=== PATIENT | female | born 1985 | race Caucasian/White ===

== ENCOUNTER 2019-11-11 08:07 | Emergency (ER) | payer OTHER, SELFPAY ==
--- NOTE | ~2019-11-11 | XR_ITS ---
EXAMINATION: XR hand RT min 3V DATE: 11/11/2019 09:37 INDICATION: Right hand swelling. TECHNIQUE: 3 views of right hand were obtained. COMPARISON: None. FINDINGS: Bone alignment is normal. No fracture. There is mild osteoarthritis of fifth distal interph alangeal joint. IMPRESSION: 1. Mild osteoarthritis of fifth distal interphalangeal joint. Reviewed, dictated and finalized at location A. [facility]
[2019-11-11 08:10] VITALS: BP 132/80; PULSE 81; RESP 16; TEMP 37.4; O2SAT 100
--- NOTE | 2019-11-11 09:00 | ED.GENADULT ---
HPI - General Adult General Chief complaint: Unspecified Stated complaint: finger swelling/rash Time Seen by Provider: 11/11/19 08:11 Source: patient Mode of arrival: ambulatory Limitations: no limitations History of Present Illness HPI narrative: Patient is here primarily for an evaluation of swelling of fingers 2 3 and 5 on her right hand, and area of redness on the third finger. She denies any trauma, and only mild discomfort when she bends them. She works as a inside barrel lathe operator, she is not had a recent manicure. There is no history of arthritis in herself or her family. The swelling started several days ago, she is taken 1 dose of ibuprofen, and 1 dose of Benadryl for the redness. She states that she has had a low-grade fever in the past 24 hours, 99.3 Onset (ago): day(s) Location: right and upper extremity Radiation: non-radiation and distal Severity: mild Relieving factors: none Exacerbating factors: movement Associated symptoms: denies other symptoms Treatments prior to arrival: NSAID Related Data Home Medications Medication Instructions Recorded Confirmed diazepam 11/11/19 lisinopril 11/11/19 Allergies Allergy/AdvReac Type Severity Reaction Status Date / Time No Known Allergies Allergy Verified 11/11/19 08:53 Review of Systems Review of Systems: All systems reviewed & are unremarkable except as noted in HPI and below PENDING SALE TO [facility] Social History Social History (Updated 11/11/19 @ 10:09 by Haley Frazier PA-C) Smoking status: Light tobacco smoker Alcohol intake: current Substance use: never Living arrangements: with family Occupation/Education: occupation Exam Const: General: no acute distress and alert Orientation/consciousness: patient oriented x3 HENMT: Head: normal to inspection Eyes: Pupils: Equal, round and reactive pupils present Resp: Effort & Inspection: normal respiratory effort Auscultation: clear to auscultation bilaterally Cardio: Rate: regular rate Rhythm: regular rhythm Skin: General skin exam: normal color Rashes: rashes noted (flat, smooth erythema at DIP right 3rd finger, cigarette area) Trauma: no lacerations or abrasions Wounds: no wounds Nails: normal Neuro: General: moves all extremities Extrem: General: normal to inspection and edema (mild edema and to fingers 2&3 on right hand, medial angulation of both 5th ) Psych: Mental Status: mental status grossly normal Course Course Emergency Course: The fingers in question are painful to touch. There is medial length angulation of both fifth fingers, but full range of motion. Patient states that she also has occasional pain in her right knee, and other arthritic-like complaints. Recommend treating with NSAIDs, follow-up with her primary care. Patient was anxious because her xniqqq-sa-akh recently from an MRSA infection and she had been visiting him in the hospital. Vital Signs Vital signs: Vital Signs Temperature 37.4 C 11/11/19 08:10 Pulse Rate 81 11/11/19 08:10 Respiratory Rate 16 11/11/19 08:10 Blood Pressure 132/80 11/11/19 08:10 Pulse Oximetry 100 11/11/19 08:10 Temperature 37.4 C 11/11/19 08:10 Pulse Rate 81 11/11/19 08:10 Respiratory Rate 16 11/11/19 08:10 Blood Pressure 132/80 11/11/19 08:10 Pulse Oximetry 100 11/11/19 08:10 Medical Decision Making Vital Signs Vital Signs: Vital Signs Temperature 37.4 C 11/11/19 08:10 Pulse Rate 81 11/11/19 08:10 Respiratory Rate 16 11/11/19 08:10 Blood Pressure 132/80 11/11/19 08:10 Pulse Oximetry 100 11/11/19 08:10 Temperature 37.4 C 11/11/19 08:10 Pulse Rate 81 11/11/19 08:10 Respiratory Rate 16 11/11/19 08:10 Blood Pressure 132/80 11/11/19 08:10 Pulse Oximetry 100 11/11/19 08:10 Discharge Plan Discharge Clinical Impression: Osteoarthritis Qualifiers: Osteoarthritis location: hand Osteoarthritis type: primary Laterality: bilateral Qualified Code(s): M19.041
== END 2019-11-11 10:25 | disposition home or self-care (01) ==
PROVIDERS: Emergency Provider Emergency Medicine; PCP Family Medicine
DX: M19.041 Primary osteoarthritis, right hand (principal); M19.042 Primary osteoarthritis, left hand; F17.200 Nicotine dependence, unspecified, uncomplicated
CPT/HCPCS: 73130; 99283

== ENCOUNTER → 2021-06-05 08:00 | Outpatient (CLI) | payer OTHER, SELFPAY ==
[2021-06-05 20:24] LABS: SARS-CoV-2 RNA PCR Negative
== END ==
PROVIDERS: PCP Family Medicine; Visit Provider Family Medicine
DX: J01.00 Acute maxillary sinusitis, unspecified (principal); Z20.822 Contact with and (suspected) exposure to COVID-19
CPT/HCPCS: C9803; U0003; U0005

== ENCOUNTER 2021-07-31 13:35 | Emergency (ER) | payer OTHER, SELFPAY ==
--- NOTE | ~2021-07-31 | XR_ITS ---
EXAMINATION: XR chest 2V DATE: 07/31/2021 14:32 INDICATION: Cough TECHNIQUE: PA and lateral views of the chest are obtained. COMPARISON: 06/05/2007 FINDINGS: The lungs are free of acute opacities. There is no pleural effusion or pneumothorax. The ca rdiomediastinal silhouette is normal. The visualized bones and soft tissues are unremarkable. IMPRESSION: 1. No acute cardiopulmonary abnormality. Reviewed, dictated and finalized at location B.
[2021-07-31 13:45] VITALS: BP 146/75; PULSE 97; RESP 16; TEMP 37; O2SAT 100
--- NOTE | 2021-07-31 14:24 | ED.URI ---
HPI - URI/Sore Throat General Chief Complaint: Upper Respiratory Infection Stated Complaint: sinus/chest congestion Time Seen by Provider: 07/31/21 14:17 Source: patient and RN notes reviewed Mode of arrival: ambulatory Limitations: no limitations History of Present Illness HPI Narrative: Patient presents today with a 4-day history of sore throat, nasal congestion, productive cough. This morning patient woke up with right-sided shoulder blade pain with shortness of breath with exertion and wheezing. Denies fever. No history of asthma or COPD. She has been taking [place] cold medicine at night with mild relief. She has not been vaccinated against COVID-19. Denies any sick contacts. MD elicited complaint: cough and nasal congestion Related Data Home Medications Medication Instructions Recorded Confirmed qcwpqztfnswh-Cq-xeib-minerals tablet PO . daily tablet 03/12/21 03/22/21 pantoprazole 40 mg tablet,delayed 40 mg PO QAM 03/12/21 03/22/21 release cyanocobalamin (vitamin B-12) 1,000 mcg PO DAILY 03/13/21 1,000 mcg tablet Allergies Allergy/AdvReac Type Severity Reaction Status Date / Time No Known Allergies Allergy Verified 11/11/19 08:53 Review of Systems Review of Systems: CONSTITUTIONAL: Denies body aches, fever, chills, or sweats. EYES: Denies visual changes, redness, or discharge. ENT: Denies rhinorrhea, or otalgia.+ Sore throat, congestion CARDIOVASCULAR: Denies chest pain, palpitations, or edema. RESPIRATORY: + Cough, shortness of breath, wheezing GASTROINTESTINAL: Denies abdominal pain, nausea, vomiting, or diarrhea. GENITOURINARY: Denies dysuria or hematuria. SKIN: Denies rash, itching, or wounds. MUSCULOSKELETAL: Denies joint pain, or myalgia.+ Right upper back pain NEUROLOGIC: Denies headache, numbness, tingling, or weakness. PSYCH: Denies depression or anxiety. [facility], [facility] Past Medical History Medical History Acute bronchitis Acute non-recurrent maxillary sinusitis COVID test 06/05/21 Allergies Anxiety Arthritis BMI 31.0-31.9,adult Chronic anxiety Chronic depression Essential (primary) hypertension Gastritis Gastro-esophageal reflux disease without esophagitis GERD (gastroesophageal reflux disease) Hypertension Mixed hyperlipidemia (03/12/21) total cholesterol 205, HDL 49, triglycerides 156, LDL 129 on 03/12/2021 Positive BUCKY (antinuclear antibody) positive BUCKY 1:80 speckled pattern with SS be positive at 4.4 with possible Sjogren syndrome or SLE without symptoms, CRP 0.21, sedimentation 7, rheumatoid factor less than 15, CCP 7 Seasonal allergic rhinitis Tobacco use disorder, continuous Vitamin B12 deficiency anemia level low at 279 on 03/12/2021 Family History Family History Father Alcohol abuse Hypertension Mother Hypertension Anxiety Sibling Diabetes mellitus Anxiety Depression Grandparent Diabetes mellitus Hypertension Anxiety Depression Cerebrovascular accident Grandparent Diabetes mellitus Hypertension Social History Social History Smoking packs per day: 0.5 Smoking cigarettes per day: 10.0 Smoking status: Current every day smoker ( 1/2 of a pack daily) Tobacco type: cigarettes Alcohol intake: current Substance use: never Comments At time of signature, I have reviewed and agree with nursing past medical, surgical, social and family history unless otherwise noted. Please see nursing chart for further information. There is no relevant family history pertinent to the presenting complaint Exam Narrative: GENERAL: Well-appearing, well-nourished, and in no acute distress. HEAD: Normocephalic, atraumatic. EYES: EOMI. No redness or drainage. Conjunctivae normal. ENT: Mucous membranes pink and moist. Nares congested. No rhinorrhea. TMs normal bilaterally. T
== END 2021-07-31 15:18 | disposition home or self-care (01) ==
PROVIDERS: Emergency Provider Nurse Practitioner; PCP Family Medicine
DX: J06.9 Acute upper respiratory infection, unspecified (principal); Z20.822 Contact with and (suspected) exposure to COVID-19; F17.210 Nicotine dependence, cigarettes, uncomplicated; F41.9 Anxiety disorder, unspecified; M19.90 Unspecified osteoarthritis, unspecified site; F32.A Depression, unspecified; I10 Essential (primary) hypertension; K21.9 Gastro-esophageal reflux disease without esophagitis; E78.2 Mixed hyperlipidemia
CPT/HCPCS: 71046; 87426; 99213; C9803; G0463

== ENCOUNTER → 2021-11-12 10:28 | Outpatient (CLI) | payer OTHER, SELFPAY ==
--- NOTE | ~2021-11-12 | XR_ITS ---
XR knee RT min 4V DATE: 11/12/2021 10:48 INDICATION: Right knee pain for one week. No known injury. TECHNIQUE: [place], lateral, PA and standing AP views COMPARISON: None FINDINGS: No fracture or dislocation or joint effusion. No periosteal reaction or bone destruction. N o radiopaque intra-articular loose body or chondrocalcinosis. Joint spaces are well preserved. IMPRESSION: Negative Reviewed, dictated and finalized at location B. [employer]IST[employer] I CEMENTING IMPRESSION: Negative
== END ==
PROVIDERS: PCP Family Medicine; Visit Provider Nurse Practitioner Family
DX: M25.561 Pain in right knee (principal)
CPT/HCPCS: 73564

== ENCOUNTER → 2022-02-28 02:10 | Outpatient (CLI) | payer OTHER, SELFPAY ==
[2022-02-28 16:40] LABS: SARS-CoV-2 RNA PCR Negative
== END ==
PROVIDERS: PCP Family Medicine; Visit Provider Family Medicine
DX: J02.9 Acute pharyngitis, unspecified (principal); Z20.822 Contact with and (suspected) exposure to COVID-19
CPT/HCPCS: C9803; U0003; U0005

== ENCOUNTER 2024-02-25 13:11 | Outpatient (CLI) | payer OTHER, SELFPAY ==
--- NOTE | ~2024-02-25 | MM_ITS ---
EXAMINATION: MM screening [facility] BI w haja HISTORY: Screening TECHNIQUE: Craniocaudal and mediolateral oblique 3-D tomosynthesis images were obtained and synthetic 2-D images were generated. CAD analysis was submitted and interpreted. COMPARISON: No prior mammogram is available for comparison at this institution. BREAST PARENCHYMAL COMPOSITION: Not dense: There are scattered areas of fibroglandular density. FINDINGS: There is no evidence of suspicious mass, calcification, or architectural distortion to sugg est malignancy in either breast. There has been no suspicious interval change. IMPRESSION: 1. No mammographic evidence of malignancy. 2. Recommend routine screening mammography in one year. BI-RADS Category 1: Negative Reviewed, dictated and finalized at location B.
== END 2024-02-25 13:12 ==
LOC: MICIMG 13:11
PROVIDERS: PCP Obstetrics & Gynecology; Visit Provider Obstetrics & Gynecology
DX: Z12.31 Encounter for screening mammogram for malignant neoplasm of breast (principal)
CPT/HCPCS: 77063; 77067

== ENCOUNTER 2025-06-21 20:48 | Observation (INO) | payer OTHER, SELFPAY ==
--- NOTE | ~2025-06-21 | CT_ITS ---
EXAMINATION: CT abdomen pelvis w con DATE: 06/22/2025 00:00 INDICATION: Generalized abdominal pain. TECHNIQUE: Computed tomography (CT) of the abdomen and pelvis was performed with 100 mL Omnipaque 350 intravenous contrast. Automated exposure control and iterative reconstruction technique were employed. The dose-length product was 932.78 mGy-cm. COMPARISON: None. FINDINGS: The visualized portions of lung bases are clear without pneumonia or pleural effusion. The heart size is normal. No pericardial effusion. The liver and gallbladder are normal. There are changes of cholecystectomy. The pancreas, adrenal glands, and right kidney are normal. There is a 14 mm cyst in left kidney. The appendix is normal. There are no dilated loops of bowel. There is wall thickening of many loops of small bowel, consistent with enteritis. There is a small volume of ascites. There is a supraumbilical ventral hernia containing fat. There are no pathologically enlarged lymph nodes. There is mild thoracic spondylosis. IMPRESSION: 1. Enteritis. 2. Supraumbilical ventral hernia containing fat. 3. Small volume of ascites. Reviewed, dictated and finalized at location E.
[2025-06-21 21:03] VITALS: BP 106/65; PULSE 102; RESP 18; TEMP 36.7; O2SAT 98
[2025-06-21 21:37] VITALS: BP 100/63; PULSE 78; RESP 16; O2SAT 94
[2025-06-21 22:03] LABS: BEDSIDEPREGUCG Negative (Negative)
[2025-06-21 22:05] LABS: Hematocrit 48.8 % (37.0-47.0); Hemoglobin 16.5 g/dL (12.0-15.0); Immature Granulocyte Percent A 0.6 % (0-0.5); Lymphocytes Absolute Auto 3.35 K/mm3 (0.9-3.2); Mean Corpuscular HGB Conc 33.8 g/dl (32-36); Mean Corpuscular Hemoglobin 33.2 pg (26-34); Mean Corpuscular Volume 98.2 fl (80-100); Nucleated Red Blood Cells Absolute Auto 0.000 K/mm3 (0.0-0.012); Nucleated Red Blood Cells Perc 0.0 % (0.0-0.2); Platelet Count Result 387 k/mm3 (150-375); Red Blood Count 4.97 M/mm3 (4.2-5.4); White Blood Count 19.2 K/mm3 (4.5-10.0)
[2025-06-21 22:16] LABS: Alanine Aminotransferase 25 U/L (6-35); Albumin Level 4.8 g/dL (3.5-5.1); Alkaline Phosphatase 74 U/L (38-126); Anion Gap 15 mmol/L (4-12); Aspartate Amino Transferase 27 U/L (14-36); Bilirubin,Total 0.8 mg/dL (0.2-1.3); Blood Urea Nitrogen 19 mg/dL (7-17); Calcium 9.7 mg/dL (8.4-10.2); Carbon Dioxide 19 mmol/L (22-30); Chloride 103 mmol/L (98-107); Estimated Glomerular Filt Rate 35; Glucose 114 mg/dL (65-110); Lipase 86 U/L (23-300); Potassium 4.6 mmol/L (3.4-5.0); Sodium 137 mmol/L (137-145); Total Protein 8.8 g/dL (6.3-8.2)
[2025-06-21 22:20] LABS: Add Urine Microscopic? YES; Appearance Urine Turbid (Clear); Glucose Urine UA Negative (Negative); Leukocyte Esterase Ur Negative LEU/UL (Negative); Need Manual Microscopic Reviewed; Nitrate Urine Negative (Negative); Non Pathogenic Casts >20; Specific Grav Ur 1.027 (1.001-1.035)
--- NOTE | 2025-06-21 22:45 | ECG_ITS ---
Test Date: 2025-06-21 23:38:10 Measurements Intervals [place] Rate: 65 P: 20 MT: 112 QRS: 28 QRSD: 80 T: 37 QT: 417 QTc: 437 Interpretive Statements SINUS RHYTHM WITH SHORT MT INTERVAL No previous ECG available for comparison Electronically Signed On 06-22-2025 06:37:56 CDT by Felicia Jeffery M.D.
--- NOTE | 2025-06-21 22:48 | ED_ITS ---
HPI - Abdominal Pain General Chief Complaint: Abdominal Pain <Kathie Norwood APRN - Last Filed: 06/22/25 02:36> Stated Complaint: abd issues <Kathie Norwood APRN - Last Filed: 06/22/25 02:36> Time Seen by Provider: 06/21/25 21:31 <Kathie Norwood APRN - Last Filed: 06/22/25 02:36> History of Present Illness HPI narrative: Patient is a 39-year-old female who presents to the ER with abdominal cramping that started on Thursday, 2 days ago. She reports most of her pain is on the left side of her abdomen and feels like labor contractions. Patient reports she has had nausea and vomiting that started this morning. She reports she has been unable to eat anything today. Patient denies any recent fevers, back pain, chest pain or shortness of breath. She endorses a history of high blood pressure, cholecystectomy, and GERD. <Kathie Norwood APRN - Last Filed: 06/22/25 02:36> Related Data Home Medications: Home Medications ?Medication ?Instructions ?Recorded ?Confirmed ?Last Taken ?Type cyanocobalamin (vitamin B-12) 1,000 mcg PO DAILY 03/1306/22/25 06/19/25 History 1,000 mcg tablet ibuprofen 400 mg PO .COMPLEX PRN pain 11/12/21 06/22/25 Unknown History loratadine 10 mg tablet (Claritin) 10 mg PO DAILY PRN allergy symptoms 03/14/24 06/22/25 Unknown History <Kathie Norwood APRN - Last Filed: 06/22/25 02:36> Allergies/Adverse Reactions: Allergies Allergy/AdvReac Type Severity Reaction Status Date / Time buspirone (From BuSpar) Allergy Intermediate Hives Verified 10/31/24 10:27 01/06/2022 <Kathie Norwood APRN - Last Filed: 06/22/25 02:36> Review of Systems 2 Review of Systems: All systems reviewed & are unremarkable except as noted in HPI and below <Kathie Norwood APRN - Last Filed: 06/22/25 02:36> [facility] Past Medical History Medical History: Medical History Gastritis Encounter for wellness examination in adult Screening mammogram, encounter for normal mammogram 02/25/2024. Spider bite (01/31/23) right flank BMI 34.0-34.9,adult COVID-19 (~04/08/22) unvaccinated Pharyngitis (~01/2022) COVID neg 02/28/22 Obesity (BMI 30.0-34.9) Urticaria BMI 33.0-33.9,adult Muscle spasm Right knee pain Right anterior knee pain Esophageal fistula repaired at 3 months Encounter for insertion of mirena IUD 09/15/2007 History of pyloric stenosis Abdominal pain Back pain Chronic eustachian tube dysfunction BMI 32.0-32.9,adult Acute non-recurrent maxillary sinusitis COVID test 06/05/21 Mixed hyperlipidemia (03/12/21) total cholesterol 205, HDL 49, triglycerides 156, LDL 129 on 03/12/2021 . Cholesterol 200, triglycerides 157, HDL 47, LDL 126 on 01/29/2022. Total cholesterol 211, triglycerides 112, HDL 48, LDL 140 with ratio of 4.4 on 01/31/2023. total cholesterol 211, HDL 48, triglycerides 112, LDL 140 with ratio 4.4 on 01/31/2023. Cholesterol 221, triglycerides 205, HDL 41, LDL 146 with ratio 5.4 on 03/04/2024. cholesterol 241, triglycerides 177, HDL 52, LDL 158 with ratio 4.6 on 10/07/2024. cholesterol 233, triglycerides 124, HDL 49, LDL 159 with ratio of 4.8 on 05/18/2025. Positive BUCKY (antinuclear antibody) positive BUCKY 1:80 speckled pattern with SS be positive at 4.4 with possible Sjogren syndrome or SLE without symptoms, CRP 0.21, sedimentation 7, rheumatoid factor less than 15, CCP 7 Vitamin B12 deficiency anemia level low at 279 on 03/12/2021 . Level normal at 506 on 01/29/2022. Level low at 293 with goal greater than 400 on 01/31/2023 with folic acid 8.3 and hemoglobin 13.3. Level low at 293 with goal greater than 400 with folic acid 8.3 and hemoglobin 13.3 on 01/31/2023. level low at 240 with hemoglobin 13.6 on 03/04/2024. Level low at 311 on 10/07/2024. Level low at 238 with goal greater than 400 with hemoglobin 13.3 on 05/18/2025. Tobacco use disorder, continuous 1/2 pack per day BMI 31.0-31.9,adult Chronic depression Chronic anxiety Seasonal allergic rhinitis Gastro-esophageal reflux disease without esophagitis Essential (primary) hypertension Hypertension GERD (gastroesophageal reflux disease) Arthritis Anxiety <Kathie Norwood APRN - Last Filed: 06/22/25 02:36> Surgical History Surgical History: Surgical History H/O tubal ligation 2008 History of colposcopy with cervical biopsy 01/05/09 [facility] CIN2/ ECC benign H/O LEEP 01/18/09 [facility] GISELE 1 H/O dilation and curettage 11/12/11 Menorrhagia- moderate dysplasia [facility] GISELE 2-3/ adenomyosis History of robot-assisted laparoscopic hysterectomy 01/13/12 [facility]--dysmenorrhea, dysplasia, [facility] GISELE 2-3, adenomyosis Hx of cholecystectomy <Kathie Norwood APRN - Last Filed: 06/22/25 02:36> Family History Family History: Family History Father Alcohol abuse Hypertension Mother Hypertension Anxiety Sibling Diabetes mellitus Anxiety Depression Grandparent Diabetes mellitus Hypertension Anxiety Depression Cerebrovascular accident Grandparent Diabetes mellitus Hypertension <Kathie Norwood APRN - Last Filed: 06/22/25 02:36> Social History Social History: Social History Smoking packs per day: 0.5 Smoking cigarettes per day: 10.0 Years smoked: 23 Smoking pack-years: 11.50 Smoking status: Current every day smoker Tobacco type: cigarettes Second hand tobacco smoke exposure: Yes Alcohol intake: current Drinks per week: 1 Alcohol use details: occ 1 every 3 months Substance use: never Substance use type: does not use Do You Feel Safe in your Home?: Yes Lack of Transportation: No Lack of Food: Never True Current Housing: I Have Housing Concerned About Future Housing: No Difficulty Paying Gas/Electric Bills: No Difficulty Paying for Meds: No Currently Unemployed: No Education: High School Diploma/GED Difficulty w/ Childcare or Family Care: No Living arrangements: with family Additional living arrangements comments: spouse Occupation/Education: occupation 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 HEAD: Normocephalic, atraumatic. NECK: Supple. No adenopathy, no masses. RESPIRATORY: Airway patent, respirations nonlabored. Clear to auscultation bilaterally, no rales, rhonchi, wheezing. CARDIOVASCULAR:Tachycardia without murmurs, rubs, or gallops. Peripheral pulses 2+ and equal bilaterally. Negative CVA tenderness ABDOMINAL: Soft, tender L upper and lower quadrant, nondistended, no hepatosplenomegaly. Normoactive BS. MUSCULOSKELETAL: Moves all extremities. Strength/ROM intact without gross deformities. SKIN: Warm, dry, normal color. No rashes. NEURO: A&O X3. Speech clear. Cranial nerves II-XII intact. No ataxic movements. PSYCHIATRIC: Appropriate mood and affect. Normal interaction. <Kathie Norwood APRN - Last Filed: 06/22/25 02:36> Course CLOUD ENGAGEMENT PARTNER/PA Physician Supervision This visit was performed by both a physician and an APC. I performed all aspects of the MDM as documented. <Ajay Kahn MD - Last Filed: 06/22/25 06:27> Vital Signs Vital signs: Vital Signs Temperature 36.7 C 06/21/25 21:03 Pulse Rate 102 H 06/21/25 21:03 Respiratory Rate 18 06/21/25 21:03 Blood Pressure 106/65 06/21/25 21:03 Pulse Oximetry 98 06/21/25 21:03 Oxygen Delivery Room Air 06/21/25 21:03 Temperature 36.6 C 06/22/25 04:52 Pulse Rate 51 L 06/22/25 04:52 Respiratory Rate 16 06/22/25 04:52 Blood Pressure 112/66 06/22/25 04:52 Pulse Oximetry 98 06/22/25 04:52 Oxygen Delivery Room Air 06/21/25 21:03 <Kathie Norwood APRN - Last Filed: 06/22/25 02:36> Vital Signs Temperature 36.7 C 06/21/25 21:03 Pulse Rate 102 H 06/21/25 21:03 Respiratory Rate 18 06/21/25 21:03 Blood Pressure 106/65 06/21/25 21:03 Pulse Oximetry 98 06/21/25 21:03 Oxygen Delivery Room Air 06/21/25 21:03 Temperature 36.6 C 06/22/25 04:52 Pulse Rate 51 L 06/22/25 04:52 Respiratory Rate 16 06/22/25 04:52 Blood Pressure 112/66 06/22/25 04:52 Pulse Oximetry 98 06/22/25 04:52 Oxygen Delivery Room Air 06/21/25 21:03 <Ajay Kahn MD - Last Filed: 06/22/25 06:27> MDM - Abdominal Pain MDM Narrative Medical decision making narrative: Patient is a 39-year-old female who presents to the ER with abdominal cramping that started on Thursday, 2 days ago. She reports most of her pain is on the left side of her abdomen and feels like labor contractions. Patient reports she has had nausea and vomiting that started this morning. She reports she has been unable to eat anything today. Patient denies any recent fevers, back pain, chest pain or shortness of breath. She endorses a history of cholecystomy, high blood pressure and GERD. Labs Ordered: CBC, CMP, lactic acid, UA, lipase, CRP Imaging Ordered: CT abdomen pelvis with contrast Medications Ordered: 3 L normal saline IV bolus, morphine 4 mg IV, ceftriaxone 1 g IV Results: Patient's CT abdomen pelvis scan indicates thickened small bowel loops suggestive of enteritis. Small amount of free fluid in the pelvis. Diagnosis: Acute kidney injury, urinary tract infection Results of imaging and lab work shared with patient and their family. It was advised patient be admitted to the hospital for further evaluation and treatment. Patient and their family verbalized understanding and are in agreement with plan. 0230- Spoke with Dr. Muro, who is in agreement with plan for admission. Pt will be admitted to the med/surg floor. <Kathie Norwood APRN - Last Filed: 06/22/25 02:36> Differential Diagnosis Differential diagnosis: Likely abdominal pain, calculus of kidney, gastroenteritis and small bowel obstruction <Kathie Norwood APRN - Last Filed: 06/22/25 02:36> Lab Data Attestation: I reviewed the patient's lab results. <Kathie Norwood APRN - Last Filed: 06/22/25 02:36> Result diagrams: 06/21/25 23:07 06/21/25 23:07 <Kathie Norwood APRN - Last Filed: 06/22/25 02:36> Labs: Lab Results 06/21/25 06/21/25 06/21/25 Range/Units 21:58 22:00 23:07 WBC 19.2 H 19.5 H (4.5-10.0) K/mm3 RBC 4.97 4.95 (4.2-5.4) M/mm3 Hgb 16.5 H 16.4 H (12.0-15.0) g/dL Hct 48.8 H 48.4 H (37.0-47.0) % MCV 98.2 97.8 (80-100) fl MCH 33.2 33.1 (26-34) pg MCHC 33.8 33.9 (32-36) g/dl RDW 12.9 12.9 (11.5-14.5) % Plt Count 387 H 370 (150-375) k/mm3 MPV 10.5 H 10.5 H (7.4-10.4) fl Immature Gran % (Auto) 0.6 H 0.6 H (0-0.5) % Neut % (Auto) 76.6 H 79.8 H (45.5-73.1) % Lymph % (Auto) 17.4 L 15.2 L (18.3-44.2) % [place] % (Auto) 4.6 3.8 (2.6-8.5) % Eos % (Auto) 0.5 0.3 (0-4.4) % Baso % (Auto) 0.3 0.3 (0.2-1.2) % Lymph # (Auto) 3.35 H 2.96 (0.9-3.2) K/mm3 [place] # (Auto) 0.9 H 0.8 H (0.1-0.6) K/mm3 Eos # (Auto) 0.1 0.1 (0-0.3) K/mm3 Baso # (Auto) 0.1 0.1 (0.0-0.1) K/mm3 Abs Immat Gran (auto) 0.11 H 0.12 H (0.00-0.031) K/mm3 Absolute Neuts (auto) 14.7 H 15.6 H (1.3-6.7) K/mm3 Absolute Nucleated RBC 0.000 0.000 (0.0-0.012) K/mm3 Nucleated RBC % 0.0 0.0 (0.0-0.2) % PT 13.8 (11.1-14.7) Seconds INR 1.0 APTT 25.2 (22.3-36.8) Seconds Sodium 137 137 (137-145) mmol/L Potassium 4.6 4.8 (3.4-5.0) mmol/L Chloride 103 104 (98-107) mmol/L Carbon Dioxide 19 L 18 L (22-30) mmol/L Anion Gap 15 H 15 H (4-12) mmol/L BUN 19 H 20 H (7-17) mg/dL Creatinine 1.61 H 1.59 H (0.7-1.0) mg/dL Estim Creat Clear Calc Not Reportable Not Reportable Estimated GFR 35 L 36 L (59 - ) Glucose 114 H 107 (65-110) mg/dL Lactic Acid (0.7-2.0) mmol/L Calcium 9.7 9.5 (8.4-10.2) mg/dL Total Bilirubin 0.8 0.8 (0.2-1.3) mg/dL AST 27 29 (14-36) U/L ALT 25 25 (6-35) U/L Alkaline Phosphatase 74 76 (38-126) U/L C-Reactive Protein 3.5 H (<1.0) mg/dL Total Protein 8.8 H 8.6 H (6.3-8.2) g/dL Albumin 4.8 4.7 (3.5-5.1) g/dL Lipase 86 (23-300) U/L Urine Color Dark yellow (Yellow) Urine Appearance Turbid H (Clear) Urine pH 5.0 (5.0-9.0) Ur Specific [place] 1.027 (1.001-1.035) Urine Protein 1+ H (Negative) mg/dL Urine Glucose (UA) Negative (Negative) mg/dL Urine Ketones Trace H (Negative) mg/dL Ur Blood (Man) Negative (Negative) Urine Nitrate Negative (Negative) Urine Bilirubin 2+ H (Negative) Urine Urobilinogen 1.0 (<2.0) mg/dL Add Ur Microanalysis Reviewed Leukocyte Esterase Rfl Negative (Negative) FRENCH/UL Urine RBC 11-20 H (0-2) /hpf Urine WBC 11-20 H (0-3) /hpf Ur Squamous Epith Cells Many H (Few) /hpf Urine Bacteria 4+ H /hpf Urine Casts >20 Urine Mucus Present /lpf POC Urine HCG, Qual Negative (Negative) // Range/Units 23:08 WBC (4.5-10.0) K/mm3 RBC (4.2-5.4) M/mm3 Hgb (12.0-15.0) g/dL Hct (37.0-47.0) % MCV (80-100) fl MCH (26-34) pg MCHC (32-36) g/dl RDW (11.5-14.5) % Plt Count (150-375) k/mm3 MPV (7.4-10.4) fl Immature Gran % (Auto) (0-0.5) % Neut % (Auto) (45.5-73.1) % Lymph % (Auto) (18.3-44.2) % [place] % (Auto) (2.6-8.5) % Eos % (Auto) (0-4.4) % Baso % (Auto) (0.2-1.2) % Lymph # (Auto) (0.9-3.2) K/mm3 [place] # (Auto) (0.1-0.6) K/mm3 Eos # (Auto) (0-0.3) K/mm3 Baso # (Auto) (0.0-0.1) K/mm3 Abs Immat Gran (auto) (0.00-0.031) K/mm3 Absolute Neuts (auto) (1.3-6.7) K/mm3 Absolute Nucleated RBC (0.0-0.012) K/mm3 Nucleated RBC % (0.0-0.2) % PT (11.1-14.7) Seconds INR APTT (22.3-36.8) Seconds Sodium (137-145) mmol/L Potassium (3.4-5.0) mmol/L Chloride (98-107) mmol/L Carbon Dioxide (22-30) mmol/L Anion Gap (4-12) mmol/L BUN (7-17) mg/dL Creatinine (0.7-1.0) mg/dL Estim Creat Clear Calc Estimated GFR (59 - ) Glucose (65-110) mg/dL Lactic Acid 1.5 (0.7-2.0) mmol/L Calcium (8.4-10.2) mg/dL Total Bilirubin (0.2-1.3) mg/dL AST (14-36) U/L ALT (6-35) U/L Alkaline Phosphatase (38-126) U/L C-Reactive Protein (<1.0) mg/dL Total Protein (6.3-8.2) g/dL Albumin (3.5-5.1) g/dL Lipase (23-300) U/L Urine Color (Yellow) Urine Appearance (Clear) Urine pH (5.0-9.0) Ur Specific [place] (1.001-1.035) Urine Protein (Negative) mg/dL Urine Glucose (UA) (Negative) mg/dL Urine Ketones (Negative) mg/dL Ur Blood (Man) (Negative) Urine Nitrate (Negative) Urine Bilirubin (Negative) Urine Urobilinogen (<2.0) mg/dL Add Ur Microanalysis Leukocyte Esterase Rfl (Negative) FRENCH/UL Urine RBC (0-2) /hpf Urine WBC (0-3) /hpf Ur Squamous Epith Cells (Few) /hpf Urine Bacteria /hpf Urine Casts Urine Mucus /lpf POC Urine HCG, Qual (Negative) <Kathie Norwood, RAIL DOWELING MACHINE OPERATOR - Last Filed: 06/22/25 02:36> Lab Results 06/21/25 06/21/25 06/21/25 Range/Units 21:58 22:00 23:07 WBC 19.2 H 19.5 H (4.5-10.0) K/mm3 RBC 4.97 4.95 (4.2-5.4) M/mm3 Hgb 16.5 H 16.4 H (12.0-15.0) g/dL Hct 48.8 H 48.4 H (37.0-47.0) % MCV 98.2 97.8 (80-100) fl MCH 33.2 33.1 (26-34) pg MCHC 33.8 33.9 (32-36) g/dl RDW 12.9 12.9 (11.5-14.5) % Plt Count 387 H 370 (150-375) k/mm3 MPV 10.5 H 10.5 H (7.4-10.4) fl Immature Gran % (Auto) 0.6 H 0.6 H (0-0.5) % Neut % (Auto) 76.6 H 79.8 H (45.5-73.1) % Lymph % (Auto) 17.4 L 15.2 L (18.3-44.2) % [place] % (Auto) 4.6 3.8 (2.6-8.5) % Eos % (Auto) 0.5 0.3 (0-4.4) % Baso % (Auto) 0.3 0.3 (0.2-1.2) % Lymph # (Auto) 3.35 H 2.96 (0.9-3.2) K/mm3 [place] # (Auto) 0.9 H 0.8 H (0.1-0.6) K/mm3 Eos # (Auto) 0.1 0.1 (0-0.3) K/mm3 Baso # (Auto) 0.1 0.1 (0.0-0.1) K/mm3 Abs Immat Gran (auto) 0.11 H 0.12 H (0.00-0.031) K/mm3 Absolute Neuts (auto) 14.7 H 15.6 H (1.3-6.7) K/mm3 Absolute Nucleated RBC 0.000 0.000 (0.0-0.012) K/mm3 Nucleated RBC % 0.0 0.0 (0.0-0.2) % PT 13.8 (11.1-14.7) Seconds INR 1.0 APTT 25.2 (22.3-36.8) Seconds Sodium 137 137 (137-145) mmol/L Potassium 4.6 4.8 (3.4-5.0) mmol/L Chloride 103 104 (98-107) mmol/L Carbon Dioxide 19 L 18 L (22-30) mmol/L Anion Gap 15 H 15 H (4-12) mmol/L BUN 19 H 20 H (7-17) mg/dL Creatinine 1.61 H 1.59 H (0.7-1.0) mg/dL Estim Creat Clear Calc Not Reportable Not Reportable Estimated GFR 35 L 36 L (59 - ) Glucose 114 H 107 (65-110) mg/dL Lactic Acid (0.7-2.0) mmol/L Calcium 9.7 9.5 (8.4-10.2) mg/dL Total Bilirubin 0.8 0.8 (0.2-1.3) mg/dL AST 27 29 (14-36) U/L ALT 25 25 (6-35) U/L Alkaline Phosphatase 74 76 (38-126) U/L C-Reactive Protein 3.5 H (<1.0) mg/dL Total Protein 8.8 H 8.6 H (6.3-8.2) g/dL Albumin 4.8 4.7 (3.5-5.1) g/dL Lipase 86 (23-300) U/L Urine Color Dark yellow (Yellow) Urine Appearance Turbid H (Clear) Urine pH 5.0 (5.0-9.0) Ur Specific [place] 1.027 (1.001-1.035) Urine Protein 1+ H (Negative) mg/dL Urine Glucose (UA) Negative (Negative) mg/dL Urine Ketones Trace H (Negative) mg/dL Ur Blood (Man) Negative (Negative) Urine Nitrate Negative (Negative) Urine Bilirubin 2+ H (Negative) Urine Urobilinogen 1.0 (<2.0) mg/dL Add Ur Microanalysis Reviewed Leukocyte Esterase Rfl Negative (Negative) FRENCH/UL Urine RBC 11-20 H (0-2) /hpf Urine WBC 11-20 H (0-3) /hpf Ur Squamous Epith Cells Many H (Few) /hpf Urine Bacteria 4+ H /hpf Urine Casts >20 Urine Mucus Present /lpf POC Urine HCG, Qual Negative (Negative) 06/21/25 Range/Units 23:08 WBC (4.5-10.0) K/mm3 RBC (4.2-5.4) M/mm3 Hgb (12.0-15.0) g/dL Hct (37.0-47.0) % MCV (80-100) fl MCH (26-34) pg MCHC (32-36) g/dl RDW (11.5-14.5) % Plt Count (150-375) k/mm3 MPV (7.4-10.4) fl Immature Gran % (Auto) (0-0.5) % Neut % (Auto) (45.5-73.1) % Lymph % (Auto) (18.3-44.2) % [place] % (Auto) (2.6-8.5) % Eos % (Auto) (0-4.4) % Baso % (Auto) (0.2-1.2) % Lymph # (Auto) (0.9-3.2) K/mm3 [place] # (Auto) (0.1-0.6) K/mm3 Eos # (Auto) (0-0.3) K/mm3 Baso # (Auto) (0.0-0.1) K/mm3 Abs Immat Gran (auto) (0.00-0.031) K/mm3 Absolute Neuts (auto) (1.3-6.7) K/mm3 Absolute Nucleated RBC (0.0-0.012) K/mm3 Nucleated RBC % (0.0-0.2) % PT (11.1-14.7) Seconds INR APTT (22.3-36.8) Seconds Sodium (137-145) mmol/L Potassium (3.4-5.0) mmol/L Chloride (98-107) mmol/L Carbon Dioxide (22-30) mmol/L Anion Gap (4-12) mmol/L BUN (7-17) mg/dL Creatinine (0.7-1.0) mg/dL Estim Creat Clear Calc Estimated GFR (59 - ) Glucose (65-110) mg/dL Lactic Acid 1.5 (0.7-2.0) mmol/L Calcium (8.4-10.2) mg/dL Total Bilirubin (0.2-1.3) mg/dL AST (14-36) U/L ALT (6-35) U/L Alkaline Phosphatase (38-126) U/L C-Reactive Protein (<1.0) mg/dL Total Protein (6.3-8.2) g/dL Albumin (3.5-5.1) g/dL Lipase (23-300) U/L Urine Color (Yellow) Urine Appearance (Clear) Urine pH (5.0-9.0) Ur Specific [place] (1.001-1.035) Urine Protein (Negative) mg/dL Urine Glucose (UA) (Negative) mg/dL Urine Ketones (Negative) mg/dL Ur Blood (Man) (Negative) Urine Nitrate (Negative) Urine Bilirubin (Negative) Urine Urobilinogen (<2.0) mg/dL Add Ur Microanalysis Leukocyte Esterase Rfl (Negative) FRENCH/UL Urine RBC (0-2) /hpf Urine WBC (0-3) /hpf Ur Squamous Epith Cells (Few) /hpf Urine Bacteria /hpf Urine Casts Urine Mucus /lpf POC Urine HCG, Qual (Negative) <Ajay Kahn MD - Last Filed: 06/22/25 06:27> Imaging Data Attestation: I personally reviewed and interpreted this imaging study as follows: < Kathie Norwood APRN - Last Filed: 06/22/25 02:36> Radiologist's impression: Patient's CT abdomen pelvis scan indicates thickened small bowel loops suggestive of enteritis. Small amount of free fluid in the pelvis. <Kathie Norwood APRN - Last Filed: 06/22/25 02:36> Critical Care Time Critical Care Time Critical Care Time: Yes <Kathie Norwood APRN - Last Filed: 06/22/25 02:36> Total Critical Care Time: 45 <Kathie Norwood APRN - Last Filed: 06/22/25 02:36> Discharge Plan Discharge Clinical Impression: Acute kidney injury, Urinary tract infection, Elevated WBC count, Enteritis <Kathie Norwood APRN - Last Filed: 06/22/25 02:36> Patient Disposition: Still a Patient <Kathie Norwood APRN - Last Filed: 06/22/25 02:36> Condition: Stable <Kathie Norwood APRN - Last Filed: 06/22/25 02:36>
[2025-06-21 23:16] LABS: Hematocrit 48.4 % (37.0-47.0); Hemoglobin 16.4 g/dL (12.0-15.0); Immature Granulocyte Percent A 0.6 % (0-0.5); Lymphocytes Absolute Auto 2.96 K/mm3 (0.9-3.2); Mean Corpuscular HGB Conc 33.9 g/dl (32-36); Mean Corpuscular Hemoglobin 33.1 pg (26-34); Mean Corpuscular Volume 97.8 fl (80-100); Nucleated Red Blood Cells Absolute Auto 0.000 K/mm3 (0.0-0.012); Nucleated Red Blood Cells Perc 0.0 % (0.0-0.2); Platelet Count Result 370 k/mm3 (150-375); Red Blood Count 4.95 M/mm3 (4.2-5.4); White Blood Count 19.5 K/mm3 (4.5-10.0)
[2025-06-21] MEDS: SODIUM CHLORIDE 0.9% IV 1,000 ML 999 ML IV CONT ×2 (23:26)
[2025-06-21] MEDS: ONDANSETRON INJ 4 MG/2 ML VIAL IV PUSH (23:26)
[2025-06-21] MEDS: cefTRIAXone 1 GM in SODIUM CHLORIDE 0.9% IV 50 ML 100 ML IVPB (23:26)
[2025-06-21 23:27] LABS: INR 1.0; Prothrombin Time 13.8 Seconds (11.1-14.7)
[2025-06-21] MEDS: MORPHINE SULFATE (*CRX) 4 MG/ML INJ IV PUSH (23:27)
[2025-06-21 23:28] LABS: Partial Thromboplastin Time 25.2 Seconds (22.3-36.8)
[2025-06-21 23:29] LABS: Alanine Aminotransferase 25 U/L (6-35); Albumin Level 4.7 g/dL (3.5-5.1); Alkaline Phosphatase 76 U/L (38-126); Anion Gap 15 mmol/L (4-12); Aspartate Amino Transferase 29 U/L (14-36); Bilirubin,Total 0.8 mg/dL (0.2-1.3); Blood Urea Nitrogen 20 mg/dL (7-17); CRP 3.5 mg/dL (<1.0); Calcium 9.5 mg/dL (8.4-10.2); Carbon Dioxide 18 mmol/L (22-30); Chloride 104 mmol/L (98-107); Estimated Glomerular Filt Rate 36; Glucose 107 mg/dL (65-110); Potassium 4.8 mmol/L (3.4-5.0); Sodium 137 mmol/L (137-145); Total Protein 8.6 g/dL (6.3-8.2)
[2025-06-22 01:30] VITALS: BP 113/65; PULSE 70; RESP 15; O2SAT 94
[2025-06-22] MEDS: SODIUM CHLORIDE 0.9% IV 1,000 ML 999 ML IV CONT (02:47)
[2025-06-22 04:28] VITALS: BMI 38.2
[2025-06-22] MEDS: SODIUM CHLORIDE 0.9% IV 1,000 ML 125 ML IV CONT ×3 (04:32→22:03)
[2025-06-22] MEDS: metroNIDAZOLE 500 MG/ISO 100ML 500 MG/100 ML BAG 100 MG IVPB ×3 (04:33→22:03)
[2025-06-22] MEDS: HYDROcodone/acetaminophen (*CRX) 5-325 MG TABLET 1 TAB PO ×2 (04:42→16:15)
[2025-06-22 04:52] VITALS: BP 112/66; PULSE 51; RESP 16; TEMP 36.6; O2SAT 98
[2025-06-22 08:00] VITALS: O2SAT 98
[2025-06-22 08:07] LABS: Hematocrit 37.6 % (37.0-47.0); Hemoglobin 12.2 g/dL (12.0-15.0); Immature Granulocyte Percent A 0.4 % (0-0.5); Lymphocytes Absolute Auto 3.70 K/mm3 (0.9-3.2); Mean Corpuscular HGB Conc 32.4 g/dl (32-36); Mean Corpuscular Hemoglobin 33.1 pg (26-34); Mean Corpuscular Volume 101.9 fl (80-100); Nucleated Red Blood Cells Absolute Auto 0.000 K/mm3 (0.0-0.012); Nucleated Red Blood Cells Perc 0.0 % (0.0-0.2); Platelet Count Result 272 k/mm3 (150-375); Red Blood Count 3.69 M/mm3 (4.2-5.4); White Blood Count 11.1 K/mm3 (4.5-10.0)
[2025-06-22 08:30] LABS: Anion Gap 7 mmol/L (4-12); Blood Urea Nitrogen 17 mg/dL (7-17); Calcium 7.7 mg/dL (8.4-10.2); Carbon Dioxide 21 mmol/L (22-30); Chloride 108 mmol/L (98-107); Estimated CRCL calculation 76 ml/min; Estimated Glomerular Filt Rate > 60; Glucose 123 mg/dL (65-110); Potassium 3.7 mmol/L (3.4-5.0); Sodium 136 mmol/L (137-145)
[2025-06-22] MEDS: ENOXAPARIN 30 MG/0.3 ML SYRINGE SUB-Q (08:47)
--- NOTE | 2025-06-22 09:11 | P.PNIM_ITS ---
Progress Note: A&P Assessment and Plan (1) Essential (primary) hypertension: Code(s): I10 - Essential (primary) hypertension Status: Acute (2) Mixed hyperlipidemia: Onset Date: 03/12/21 Code(s): E78.2 - Mixed hyperlipidemia Status: Acute (3) Gastro-esophageal reflux disease without esophagitis: Code(s): K21.9 - Gastro-esophageal reflux disease without esophagitis Status: Acute (4) Enteritis: Code(s): K52.9 - Noninfective gastroenteritis and colitis, unspecified Status: Acute (5) Urinary tract infection: Code(s): N39.0 - Urinary tract infection, site not specified Status: Acute (6) Acute kidney injury: Code(s): N17.9 - Acute kidney failure, unspecified Status: Acute (7) Vitamin B12 deficiency anemia: Qualifiers: Vitamin B12 deficiency anemia type: unspecified B12 deficiency Qualified Code(s): D51.9 - Vitamin B12 deficiency anemia, unspecified Code(s): D51.9 - Vitamin B12 deficiency anemia, unspecified Status: Acute (8) Tobacco use disorder, continuous: Code(s): F17.209 - Nicotine dependence, unspecified, with unspecified nicotine-induced disorders Status: Acute Plan 39-year-old female with PMH/of GERD, cholecystectomy, HTN, HLD, gastritis, B12 dficiency, anxiety admitted from ER with abdominal cramping that started on Thursday, 06/19. She reports most of her pain is on the left side of her abdomen and feels like labor contractions. She reports nausea and vomiting that started yesterday, 06/21, unable to eat anything. Patient denies any recent fevers, back pain, chest pain or shortness of breath. In ED: Labs Ordered: CBC- wbc 19.2, hg/hct 16.5/48.8, platelet 387. CMP-cr/bun 1.61/19, , lactic acid 1.5, lipase 86, CRP3.5. UA-1+ protein, 4+ bacteria Imaging Ordered: CT abdomen pelvis with contrast: IMPRESSION: 1. Enteritis. 2. Supraumbilical ventral hernia containing fat. 3. Small volume of ascites. Medications Ordered: 3 L normal saline IV bolus, morphine 4 mg IV, ceftriaxone 1 g IV Results: Patient's CT abdomen pelvis scan indicates thickened small bowel loops suggestive of enteritis. Small amount of free fluid in the pelvis. Diagnosis: Acute kidney injury, urinary tract infection pt was started on Rocephin and flagyl- this will be continued BP is ok, so will hold lisinopril in setting of [place] monitor labs daily resume home meds Pt is full code DVT prophylaxis: lovenox, SCD Time Spent With Patient Time with patient: Greater than 35 minutes Subjective Date/time seen: 06/22/25 09:11 Interval history: 39-year-old female with PMH/of GERD, cholecystectomy, HTN, HLD, gastritis, B12 dficiency, anxiety admitted from ER with abdominal cramping that started on Thursday, 06/19. She reports most of her pain is on the left side of her abdomen and feels like labor contractions. She reports nausea and vomiting that started yesterday, 06/21, unable to eat anything. Patient denies any recent fevers, back pain, chest pain or shortness of breath. In ED: Labs Ordered: CBC- wbc 19.2, hg/hct 16.5/48.8, platelet 387. CMP-cr/bun 1.61/19, , lactic acid 1.5, lipase 86, CRP3.5. UA-1+ protein, 4+ bacteria Imaging Ordered: CT abdomen pelvis with contrast: IMPRESSION: 1. Enteritis. 2. Supraumbilical ventral hernia containing fat. 3. Small volume of ascites. Medications Ordered: 3 L normal saline IV bolus, morphine 4 mg IV, ceftriaxone 1 g IV Results: Patient's CT abdomen pelvis scan indicates thickened small bowel loops suggestive of enteritis. Small amount of free fluid in the pelvis. Diagnosis: Acute kidney injury, urinary tract infection Exam Const: General: comfortable Objective Data Vital Signs Vital Signs: Vital Signs - 24 hr 06/21/25 21:03 06/21/25 21:37 06/22/25 01:30 Temperature 98.0 F Pulse Rate 102 H 78 70 Respiratory Rate 18 16 15 Blood Pressure 106/65 100/63 113/65 Pulse Oximetry 98 94 94 Oxygen Delivery Room Air 06/22/25 04:52 06/22/25 08:00 Temperature 98 F Pulse Rate 51 L Respiratory Rate 16 Blood Pressure 112/66 Pulse Oximetry 98 98 Oxygen Delivery Room Air Intake/Output Intake/Output: Intake & Output 06/19/25 06/20/25 06/21/25 06/22/25 23:59 23:59 23:59 23:59 Intake Total 3410 Balance 3410 Meds/Results Medications: Active Medications Generic Name Dose Route Start Last Admin Trade Name Freq PRN Reason Stop Dose Admin Acetaminophen 650 mg 06/22/25 04:00 Acetaminophen 325 Mg Tablet PO Q4H PRN Mild Pain (1-3) or Fever Hydrocodone Bitart/Acetaminophen 1 tab 06/22/25 04:00 06/22/25 04:42 Hydrocodone/Acetaminophen (*Crx) 5-325 Mg Tablet PO 1 tab Q4H PRN Administration Pain Rated 4-10 Enoxaparin Sodium 30 mg 06/22/25 09:00 06/22/25 08:47 Enoxaparin 30 Mg/0.3 Ml Syringe SUB-Q 30 mg DAILY CHITRA Administration Sodium Chloride 1,000 mls @ 125 mls/hr 06/22/25 02:40 06/22/25 04:32 Normal Saline Iv IV CONT 125 mls/hr .Q8H CHITRA Administration Ceftriaxone Sodium 1 gm/ 50 mls @ 100 mls/hr 06/22/25 23:00 Sodium Chloride IVPB Q24H CHITRA Metronidazole 500 mg in 100 mls @ 100 mls/hr 06/22/25 04:10 06/22/25 04:33 Flagyl 500 Mg/Iso Soln 100 Ml IVPB 100 mls/hr Q8HR CHITRA Administration Morphine Sulfate 2 mg 06/22/25 08:19 Morphine Sulfate (*Crx) 4 Mg/Ml Inj IV PUSH Q4H PRN Breakthrough Pain Ondansetron HCl 4 mg 06/22/25 02:36 Ondansetron Inj 4 Mg/2 Ml Vial IV PUSH Q4H PRN Nausea Radiology Results: ITS Impressions Abdomen/Pelvis CT 06/22/25 08:09 IMPRESSION: 1. Enteritis. 2. Supraumbilical ventral hernia containing fat. 3. Small volume of ascites. Labs Labs: Laboratory Results - last 24 hr 06/21/25 06/21/25 06/21/25 21:58 22:00 23:07 WBC 19.2 H 19.5 H RBC 4.97 4.95 Hgb 16.5 H 16.4 H Hct 48.8 H 48.4 H MCV 98.2 97.8 MCH 33.2 33.1 MCHC 33.8 33.9 RDW 12.9 12.9 Plt Count 387 H 370 MPV 10.5 H 10.5 H Immature Gran % (Auto) 0.6 H 0.6 H Neut % (Auto) 76.6 H 79.8 H Lymph % (Auto) 17.4 L 15.2 L [place] % (Auto) 4.6 3.8 Eos % (Auto) 0.5 0.3 Baso % (Auto) 0.3 0.3 Lymph # (Auto) 3.35 H 2.96 [place] # (Auto) 0.9 H 0.8 H Eos # (Auto) 0.1 0.1 Baso # (Auto) 0.1 0.1 Abs Immat Gran (auto) 0.11 H 0.12 H Absolute Neuts (auto) 14.7 H 15.6 H Absolute Nucleated RBC 0.000 0.000 Nucleated RBC % 0.0 0.0 PT 13.8 INR 1.0 APTT 25.2 Sodium 137 137 Potassium 4.6 4.8 Chloride 103 104 Carbon Dioxide 19 L 18 L Anion Gap 15 H 15 H BUN 19 H 20 H Creatinine 1.61 H 1.59 H Estim Creat Clear Calc Not Reportable Not Reportable Estimated GFR 35 L 36 L Glucose 114 H 107 Lactic Acid Calcium 9.7 9.5 Total Bilirubin 0.8 0.8 AST 27 29 ALT 25 25 Alkaline Phosphatase 74 76 C-Reactive Protein 3.5 H Total Protein 8.8 H 8.6 H Albumin 4.8 4.7 Lipase 86 Urine Color Dark yellow Urine Appearance Turbid H Urine pH 5.0 Ur Specific [place] 1.027 Urine Protein 1+ H Urine Glucose (UA) Negative Urine Ketones Trace H Ur Blood (Man) Negative Urine Nitrate Negative Urine Bilirubin 2+ H Urine Urobilinogen 1.0 Add Ur Microanalysis Reviewed Leukocyte Esterase Rfl Negative Urine RBC 11-20 H Urine WBC 11-20 H Ur Squamous Epith Cells Many H Urine Bacteria 4+ H Urine Casts >20 Urine Mucus Present POC Urine HCG, Qual Negative 06/21/25 06/22/25 23:08 07:12 WBC 11.1 H RBC 3.69 L Hgb 12.2 D Hct 37.6 MCV 101.9 H MCH 33.1 MCHC 32.4 RDW 13.0 Plt Count 272 MPV 11.2 H Immature Gran % (Auto) 0.4 Neut % (Auto) 60.4 Lymph % (Auto) 33.2 [place] % (Auto) 4.9 Eos % (Auto) 0.7 Baso % (Auto) 0.4 Lymph # (Auto) 3.70 H [place] # (Auto) 0.6 Eos # (Auto) 0.1 Baso # (Auto) 0.0 Abs Immat Gran (auto) 0.05 H Absolute Neuts (auto) 6.7 Absolute Nucleated RBC 0.000 Nucleated RBC % 0.0 PT INR APTT Sodium 136 L Potassium 3.7 Chloride 108 H Carbon Dioxide 21 L Anion Gap 7 BUN 17 Creatinine 0.99 Estim Creat Clear Calc 76 Estimated GFR > 60 Glucose 123 H Lactic Acid 1.5 Calcium 7.7 L Total Bilirubin AST ALT Alkaline Phosphatase C-Reactive Protein Total Protein Albumin Lipase Urine Color Urine Appearance Urine pH Ur Specific [place] Urine Protein Urine Glucose (UA) Urine Ketones Ur Blood (Man) Urine Nitrate Urine Bilirubin Urine Urobilinogen Add Ur Microanalysis Leukocyte Esterase Rfl Urine RBC Urine WBC Ur Squamous Epith Cells Urine Bacteria Urine Casts Urine Mucus POC Urine HCG, Qual Quality VTE Prophylaxis VTE prophylaxis: mechanical ordered and pharmacologic ordered
[2025-06-22] MEDS: PANTOPRAZOLE 40 MG TABLET PO (10:06)
[2025-06-22] MEDS: CYANOCOBALAMIN 1,000 MCG TABLET 1000 MCG PO (10:06)
[2025-06-22] MEDS: ONDANSETRON INJ 4 MG/2 ML VIAL IV PUSH (13:08)
--- NOTE | 2025-06-22 13:50 | P.HP_ITS ---
H&P: HPI History of Present Illness Date/Time: 06/22/25 13:50 Chief Complaint: abd pain Narrative: 39-year-old female with PMH/of GERD, cholecystectomy, HTN, HLD, gastritis, B12 dficiency, anxiety admitted from ER with abdominal cramping that started on Thursday, 06/19. She reports most of her pain is on the left side of her abdomen and feels like labor contractions. She reports nausea and vomiting that start ed yesterday, 06/21, unable to eat anything. Patient denies any recent fevers, back pain, chest pain or shortness of breath. In ED: Labs Ordered: CBC- wbc 19.2, hg/hct 16.5/48.8, platelet 387. CMP-cr/bun 1.61/19, , lactic acid 1.5, lipase 86, CRP3.5. UA-1+ protein, 4+ bacteria Imaging Ordered: CT abdomen pelvis with contrast: IMPRESSION: 1. Enteritis. 2. Supraumbilical ventral hernia containing fat. 3. Small volume of ascites. Medications Ordered: 3 L normal saline IV bolus, morphine 4 mg IV, ceftriaxone 1 g IV Results: Patient's CT abdomen pelvis scan indicates thickened small bowel loops suggestive of enteritis. Small amount of free fluid in the pelvis. admitted for Acute kidney injury, urinary tract infection Pt is seen and examined she is comfortable, nausea and abd pain better. Review of Systems Review of Systems: All systems reviewed & are unremarkable except as noted in HPI and below PMFSH Past Medical History Medical History Gastritis Encounter for wellness examination in adult Screening mammogram, encounter for normal mammogram 02/25/2024. Spider bite (01/31/23) right flank BMI 34.0-34.9,adult COVID-19 (~04/08/22) unvaccinated Pharyngitis (~01/2022) COVID neg 02/28/22 Obesity (BMI 30.0-34.9) Urticaria BMI 33.0-33.9,adult Muscle spasm Right knee pain Right anterior knee pain Esophageal fistula repaired at 3 months Encounter for insertion of mirena IUD 09/15/2007 History of pyloric stenosis Abdominal pain Back pain Chronic eustachian tube dysfunction BMI 32.0-32.9,adult Acute non-recurrent maxillary sinusitis COVID test 06/05/21 Mixed hyperlipidemia (03/12/21) total cholesterol 205, HDL 49, triglycerides 156, LDL 129 on 03/12/2021 . Cholesterol 200, triglycerides 157, HDL 47, LDL 126 on 01/29/2022. Total cholesterol 211, triglycerides 112, HDL 48, LDL 140 with ratio of 4.4 on 01/31/2023. total cholesterol 211, HDL 48, triglycerides 112, LDL 140 with ratio 4.4 on 01/31/2023. Cholesterol 221, triglycerides 205, HDL 41, LDL 146 with ratio 5.4 on 03/04/2024. cholesterol 241, triglycerides 177, HDL 52, LDL 158 with ratio 4.6 on 10/07/2024. cholesterol 233, triglycerides 124, HDL 49, LDL 159 with ratio of 4.8 on 05/18/2025. Positive BUCKY (antinuclear antibody) positive BUCKY 1:80 speckled pattern with SS be positive at 4.4 with possible Sjogren syndrome or SLE without symptoms, CRP 0.21, sedimentation 7, rheumatoid factor less than 15, CCP 7 Vitamin B12 deficiency anemia level low at 279 on 03/12/2021 . Level normal at 506 on 01/29/2022. Level low at 293 with goal greater than 400 on 01/31/2023 with folic acid 8.3 and hemoglobin 13.3. Level low at 293 with goal greater than 400 with folic acid 8.3 and hemoglobin 13.3 on 01/31/2023. level low at 240 with hemoglobin 13.6 on 03/04/2024. Level low at 311 on 10/07/2024. Level low at 238 with goal greater than 400 with hemoglobin 13.3 on 05/18/2025. Tobacco use disorder, continuous 1/2 pack per day BMI 31.0-31.9,adult Chronic depression Chronic anxiety Seasonal allergic rhinitis Gastro-esophageal reflux disease without esophagitis Essential (primary) hypertension Hypertension GERD (gastroesophageal reflux disease) Arthritis Anxiety Surgical History Surgical History H/O tubal ligation 2008 History of colposcopy with cervical biopsy 01/05/09 [facility]2/ ECC benign H/O LEEP 01/18/09 [facility] 1 H/O dilation and curettage 11/12/11 Menorrhagia- moderate dysplasia [facility] 2-3/ adenomyosis History of robot-assisted laparoscopic hysterectomy 01/13/12 [facility]--dysmenorrhea, dysplasia, [facility] 2-3, adenomyosis Hx of cholecystectomy Family History Family History Father Alcohol abuse Hypertension Mother Hypertension Anxiety Sibling Diabetes mellitus Anxiety Depression Grandparent Diabetes mellitus Hypertension Anxiety Depression Cerebrovascular accident Grandparent Diabetes mellitus Hypertension Social History Social History Smoking packs per day: 0.5 Smoking cigarettes per day: 10.0 Years smoked: 23 Smoking pack-years: 11.50 Smoking status: Current every day smoker Tobacco type: cigarettes Second hand tobacco smoke exposure: Yes Alcohol intake: current Drinks per week: 1 Alcohol use details: occ 1 every 3 months Substance use: never Substance use type: does not use Do You Feel Safe in your Home?: Yes Lack of Transportation: No Lack of Food: Never True Current Housing: I Have Housing Concerned About Future Housing: No Difficulty Paying Gas/Electric Bills: No Difficulty Paying for Meds: No Currently Unemployed: No Education: High School Diploma/GED Difficulty w/ Childcare or Family Care: No Living arrangements: with family Additional living arrangements comments: spouse Occupation/Education: occupation 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 [employer] Gender identity (if verbalized by the patient): Female Sexual Orientation (if Verbalized by the Patient): Straight or Heterosexual Spiritual care concerns: No Meds Home Medications and Allergies Home Medications ?Medication ?Instructions ?Recorded ?Confirmed ?Type cyanocobalamin (vitamin B-12) 1,000 mcg PO DAILY 03/1306/22/25 History 1,000 mcg tablet ibuprofen 400 mg PO .COMPLEX PRN pain 11/12/21 06/22/25 History fluticasone propionate 50 1 spray intranasal BID #16 g clara 08/27/23 06/22/25 Rx mcg/actuation nasal spray,suspension (Flonase Allergy Relief) loratadine 10 mg tablet (Claritin) 10 mg PO DAILY PRN allergy symptoms 03/14/24 06/22/25 History lisinopril 40 mg tablet 40 mg PO DAILY #30 tabs 02/0 12/2006/22/25 Rx pantoprazole 40 mg tablet,delayed 40 mg PO QAM #30 tab s 06/21/25 06/22/25 Rx release (Protonix) Allergies Allergy/AdvReac Type Severity Reaction Status Date / Time buspirone (From BuSpar) Allergy Intermediate Hives Verified 10/31/24 10:27 01/06/2022 Vital Signs Vital Signs - 24 hr 06/21/25 21:03 06/21/25 21:37 06/22/25 01:30 Temperature 98.0 F Pulse Rate 102 H 78 70 Respiratory Rate 18 16 15 Blood Pressure 106/65 100/63 113/65 Pulse Oximetry 98 94 94 Oxygen Delivery Room Air 06/22/25 04:52 06/22/25 08:00 Temperature 98 F Pulse Rate 51 L Respiratory Rate 16 Blood Pressure 112/66 Pulse Oximetry 98 98 Oxygen Delivery Room Air Exam 2 Const: General: comfortable Resp: Effort & Inspection: normal respiratory effort Auscultation: clear to auscultation bilaterally Cardio: Rhythm: regular rhythm GI: GI Palp: Yes Soft to palpation Auscultation: normal bowel sounds Skin: General skin exam: normal color Neuro: Speech: normal speech Motor exam (neuro): 5/5 motor strength present throughout Extrem: General: normal to inspection Psych: Affect: normal affect H&P: Results Labs Labs: Short CBC 06/21/25 06/21/25 06/22/25 Range/Units 21:58 23:07 07:12 WBC 19.2 H 19.5 H 11.1 H (4.5-10.0) K/mm3 Hgb 16.5 H 16.4 H 12.2 D (12.0-15.0) g/dL Hct 48.8 H 48.4 H 37.6 (37.0-47.0) % Plt Count 387 H 370 272 (150-375) k/mm3 BMP 06/21/25 06/21/25 06/22/25 21:58 23:07 07:12 Sodium 137 137 136 L Potassium 4.6 4.8 3.7 Chloride 103 104 108 H Carbon Dioxide 19 L 18 L 21 L BUN 19 H 20 H 17 Creatinine 1.61 H 1.59 H 0.99 Glucose 114 H 107 123 H Calcium 9.7 9.5 7.7 L Liver Function 06/21/25 06/21/25 Range/Units 21:58 23:07 Total Bilirubin 0.8 0.8 (0.2-1.3) mg/dL AST 27 29 (14-36) U/L ALT 25 25 (6-35) U/L Alkaline Phosphatase 74 76 (38-126) U/L Albumin 4.8 4.7 (3.5-5.1) g/dL Urine 06/21/25 Range/Units 21:58 Urine Color Dark yellow (Yellow) Urine Appearance Turbid H (Clear) Urine pH 5.0 (5.0-9.0) Ur Specific [place] 1.027 (1.001-1.035) Urine Protein 1+ H (Negative) mg/dL Urine Glucose (UA) Negative (Negative) mg/dL Assessment and Plan Assessment and plan (1) Essential (primary) hypertension: Code(s): I10 - Essential (primary) hypertension Status: Acute (2) Mixed hyperlipidemia: Onset Date: 03/12/21 Code(s): E78.2 - Mixed hyperlipidemia Status: Acute (3) Gastro-esophageal reflux disease without esophagitis: Code(s): K21.9 - Gastro-esophageal reflux disease without esophagitis Status: Acute (4) Enteritis: Code(s): K52.9 - Noninfective gastroenteritis and colitis, unspecified Status: Acute (5) Urinary tract infection: Code(s): N39.0 - Urinary tract infection, site not specified Status: Acute (6) Acute kidney injury: Code(s): N17.9 - Acute kidney failure, unspecified Status: Acute (7) Vitamin B12 deficiency anemia: Qualifiers: Vitamin B12 deficiency anemia type: unspecified B12 deficiency Qualified Code(s): D51.9 - Vitamin B12 deficiency anemia, unspecified Code(s): D51.9 - Vitamin B12 deficiency anemia, unspecified Status: Acute (8) Tobacco use disorder, continuous: Code(s): F17.209 - Nicotine dependence, unspecified, with unspecified nicotine-induced disorders Status: Acute Plan 39-year-old female with PMH/of GERD, cholecystectomy, HTN, HLD, gastritis, B12 dficiency, anxiety admitted from ER with abdominal cramping that started on Thursday, 06/19. She reports most of her pain is on the left side of her abdomen and feels like labor contractions. She reports nausea and vomiting that started yesterday, 06/21, unable to eat anything. Patient denies any recent fevers, back pain, chest pain or shortness of breath. In ED: Labs Ordered: CBC- wbc 19.2, hg/hct 16.5/48.8, platelet 387. CMP-cr/bun 1.61/19, , lactic acid 1.5, lipase 86, CRP3.5. UA-1+ protein, 4+ bacteria Imaging Ordered: CT abdomen pelvis with contrast: IMPRESSION: 1. Enteritis. 2. Supraumbilical ventral hernia containing fat. 3. Small volume of ascites. Medications Ordered: 3 L normal saline IV bolus, morphine 4 mg IV, ceftriaxone 1 g IV Results: Patient's CT abdomen pelvis scan indicates thickened small bowel loops suggestive of enteritis. Small amount of free fluid in the pelvis. Diagnosis: Acute kidney injury, urinary tract infection pt was started on Rocephin and flagyl- this will be continued BP is ok, so will hold lisinopril in setting of [place] monitor labs daily resume home meds Pt is full code DVT prophylaxis: lovenox, SCD Quality VTE Prophylaxis VTE prophylaxis: mechanical ordered and pharmacologic ordered
[2025-06-22 14:00] VITALS: BP 134/70; PULSE 56; RESP 15; TEMP 36.6; O2SAT 97
[2025-06-22 21:04] VITALS: BP 117/65; PULSE 85; RESP 17; TEMP 36.6; O2SAT 100
[2025-06-22] MEDS: cefTRIAXone 1 GM in SODIUM CHLORIDE 0.9% IV 50 ML 100 ML IVPB (22:02)
[2025-06-23 05:22] VITALS: BP 138/71; PULSE 54; RESP 14; TEMP 36.3; O2SAT 97
[2025-06-23] MEDS: SODIUM CHLORIDE 0.9% IV 1,000 ML 125 ML IV CONT (05:30)
[2025-06-23 05:31] LABS: Hematocrit 35.7 % (37.0-47.0); Hemoglobin 11.6 g/dL (12.0-15.0); Mean Corpuscular HGB Conc 32.5 g/dl (32-36); Mean Corpuscular Hemoglobin 33.0 pg (26-34); Mean Corpuscular Volume 101.4 fl (80-100); Platelet Count Result 251 k/mm3 (150-375); Red Blood Count 3.52 M/mm3 (4.2-5.4); White Blood Count 8.0 K/mm3 (4.5-10.0)
[2025-06-23] MEDS: metroNIDAZOLE 500 MG/ISO 100ML 500 MG/100 ML BAG 100 MG IVPB (05:31)
[2025-06-23 05:54] LABS: Anion Gap 7 mmol/L (4-12); Blood Urea Nitrogen 8 mg/dL (7-17); Calcium 8.3 mg/dL (8.4-10.2); Carbon Dioxide 20 mmol/L (22-30); Chloride 110 mmol/L (98-107); Estimated CRCL calculation 82 ml/min; Estimated Glomerular Filt Rate > 60; Glucose 88 mg/dL (65-110); Potassium 3.7 mmol/L (3.4-5.0); Sodium 137 mmol/L (137-145)
[2025-06-23] MEDS: PANTOPRAZOLE 40 MG TABLET PO (09:28)
[2025-06-23] MEDS: CYANOCOBALAMIN 1,000 MCG TABLET 1000 MCG PO (09:28)
--- NOTE | 2025-06-23 09:54 | P.DS_ITS ---
DS: Admitting Diagnosis Discharge Date 06/23/25 Admitting Diagnosis abd pain DS: Discharge Diagnosis Discharge Diagnosis (1) Essential (primary) hypertension: Code(s): I10 - Essential (primary) hypertension Status: Acute (2) Mixed hyperlipidemia: Onset Date: 03/12/21 Code(s): E78.2 - Mixed hyperlipidemia Status: Acute (3) Gastro-esophageal reflux disease without esophagitis: Code(s): K21.9 - Gastro-esophageal reflux disease without esophagitis Status: Acute (4) Enteritis: Code(s): K52.9 - Noninfective gastroenteritis and colitis, unspecified Status: Acute (5) Urinary tract infection: Code(s): N39.0 - Urinary tract infection, site not specified Status: Acute (6) Acute kidney injury: Code(s): N17.9 - Acute kidney failure, unspecified Status: Acute (7) Vitamin B12 deficiency anemia: Qualifiers: Vitamin B12 deficiency anemia type: unspecified B12 deficiency Qualified Code(s): D51.9 - Vitamin B12 deficiency anemia, unspecified Code(s): D51.9 - Vitamin B12 deficiency anemia, unspecified Status: Acute (8) Tobacco use disorder, continuous: Code(s): F17.209 - Nicotine dependence, unspecified, with unspecified nicotine-induced disorders Status: Acute Plan 39-year-old female with PMH/of GERD, cholecystectomy, HTN, HLD, gastritis, B12 dficiency, anxiety admitted from ER with abdominal cramping that started on Thursday, 06/19. She reports most of her pain is on the left side of her abdomen and feels like labor contractions. She reports nausea and vomiting that started yesterday, 06/21, unable to eat anything. Patient denies any recent fevers, back pain, chest pain or shortness of breath. In ED: Labs Ordered: CBC- wbc 19.2, hg/hct 16.5/48.8, platelet 387. CMP-cr/bun 1.61/19, , lactic acid 1.5, lipase 86, CRP3.5. UA-1+ protein, 4+ bacteria Imaging Ordered: CT abdomen pelvis with contrast: IMPRESSION: 1. Enteritis. 2. Supraumbilical ventral hernia containing fat. 3. Small volume of ascites. Medications Ordered: 3 L normal saline IV bolus, morphine 4 mg IV, ceftriaxone 1 g IV Results: Patient's CT abdomen pelvis scan indicates thickened small bowel loops suggestive of enteritis. Small amount of free fluid in the pelvis. Diagnosis: Acute kidney injury, urinary tract infection pt was started on Rocephin and flagyl- this will be continued BP is ok, so will hold lisinopril in setting of CAROLA monitor labs daily resume home meds 06/23 ok for d/c home w/ self care. Tolerating PO intake. Greatly improved abd pain. Pt is full code DVT prophylaxis: tammie, BRAXTON DS: Summary Hospital Course Hospital Course: 39-year-old female with PMH/of GERD, cholecystectomy, HTN, HLD, gastritis, B12 dficiency, anxiety admitted from ER with abdominal cramping that started on Thursday, 06/19. She reports most of her pain is on the left side of her abdomen and feels like labor contractions. She reports nausea and vomiting that started yesterday, 06/21, unable to eat anything. Patient denies any recent fev ers, back pain, chest pain or shortness of breath. In ED: Labs Ordered: CBC- wbc 19.2, hg/hct 16.5/48.8, platelet 387. CMP-cr/bun 1.61/19, , lactic acid 1.5, lipase 86, CRP3.5. UA-1+ protein, 4+ bacteria Imaging Ordered: CT abdomen pelvis with contrast: IMPRESSION: 1. Enteritis. 2. Supraumbilical ventral hernia containing fat. 3. Small volume of ascites. Medications Ordered: 3 L normal saline IV bolus, morphine 4 mg IV, ceftriaxone 1 g IV Results: Patient's CT abdomen pelvis scan indicates thickened small bowel loops suggestive of enteritis. Small amount of free fluid in the pelvis. admitted for Acute kidney injury, urinary tract infection Status at Discharge Functional status at discharge: independent ambulation Exam Narrative: GENERAL: Ill appearing, obese, non-toxic, in acute distress due to pain. HEAD: Normocephalic, atraumatic. NECK: Supple. No adenopathy, no masses. RESPIRATORY: Airway patent, respirations nonlabored. Clear to auscultation bilaterally, no rales, rhonchi, wheezing. CARDIOVASCULAR:RRR without murmurs, rubs, or gallops. Peripheral pulses 2+ and equal bilaterally. Negative CVA tenderness ABDOMINAL: Soft, nondistended, no hepatosplenomegaly. Normoactive BS. MUSCULOSKELETAL: Moves all extremities. Strength/ROM intact without gross deformities. SKIN: Warm, dry, normal color. No rashes. NEURO: A&O X4. Speech clear. Cranial nerves II-XII intact. No ataxic movements. PSYCHIATRIC: Appropriate mood and affect. Normal interaction. Const: General: comfortable Resp: Effort & Inspection: normal respiratory effort Auscultation: clear to auscultation bilaterally Cardio: Rhythm: regular rhythm GI: Auscultation: normal bowel sounds Skin: General skin exam: normal color Neuro: Speech: normal speech Motor exam (neuro): 5/5 motor strength present throughout Extrem: General: normal to inspection Psych: Affect: normal affect DS: Data Data Completed and Pending Labs on day of discharge: Labs from last 24 hours 06/23/25 05:18 WBC 8.0 RBC 3.52 L Hgb 11.6 L Hct 35.7 L MCV 101.4 H MCH 33.0 MCHC 32.5 RDW 12.9 Plt Count 251 MPV 10.7 H Sodium 137 Potassium 3.7 Chloride 110 H Carbon Dioxide 20 L Anion Gap 7 BUN 8 D Creatinine 0.92 Estim Creat Clear Calc 82 Estimated GFR > 60 Glucose 88 Calcium 8.3 L Discharge Plan Discharge Discharging Clinician: Lynne Forbes Patient Disposition: Home Activity: may shower and unlimited Diet: low fat Discharge Instructions: He was seen for enteritis and UTI. You received IV antibiotics while in the hospital and will finish the course with oral antibiotics at home. Make sure you take all the antibiotics. Patient Instructions: Antibiotic Form, How to Stop Smoking (DC) Patient Language: Bulgarian Stand Alone Forms: General Discharge Information Follow-up/Referrals: Darrell Clarke MD [Primary Care Provider, [facility]] Referral Note: Call your doctor to schedule a discharge follow-up Discharge Medications: New sulfamethoxazole-trimethoprim 800-160 mg Tablet 1 tab PO Q12HR Qty: 0 0RF Continued fluticasone propionate [Flonase Allergy Relief] 50 mcg/actuation spray,suspension 1 spray intranasal BID Qty: 16 11RF Patient Comments: prn for allergies Rx Instructions: administer into each nostril loratadine [Claritin] 10 mg tablet 10 mg PO DAILY PRN (Reason: allergy symptoms) Patient Comments: prn for allergies ibuprofen 400 mg PO .COMPLEX PRN (Reason: pain) Patient Comments: prn for pain Rx Instructions: 400 mg orally q 6 PRN; orally PRN; cyanocobalamin (vitamin B-12) 1,000 mcg tablet 1,000 mcg PO DAILY lisinopril 40 mg tablet 40 mg PO DAILY Qty: 30 11RF pantoprazole [Protonix] 40 mg tablet,delayed release (DR/EC) 40 mg PO QAM Qty: 30 5RF Date of admission: 06/22/25 03:31 Primary Care Provider: Darrell Clarke Admitting Provider: Ute Muro Attending physician on admission: Ute Muro Condition: Stable Quality VTE Prophylaxis VTE prophylaxis: mechanical ordered and pharmacologic ordered Hospitalist MIPS Heart Failure (Exclusion) Patient has history of Heart Transplant or Left Ventricular Assistive Device?: No IF YES, STOP HERE Heart Failure (Qualifier) Patient has current or prior documentation of LVEF less than or equal to 40%, or mod/servere depressed LVSF?: No IF NO, STOP HERE
== END 2025-06-23 11:30 | disposition home or self-care (01) ==
LOC: ANHED 06-22 02:35 → ANH3MEDSUR 06-22 05:55
PROVIDERS: Nurse Practitioner; Admitting Provider Internal Medicine; Emergency Provider Registered Nurse; PCP Family Medicine; Visit Provider Internal Medicine
DX: K52.9 Noninfective gastroenteritis and colitis, unspecified (principal); N17.9 Acute kidney failure, unspecified; N39.0 Urinary tract infection, site not specified; D51.9 Vitamin B12 deficiency anemia, unspecified; F41.8 Other specified anxiety disorders; E78.2 Mixed hyperlipidemia; K21.9 Gastro-esophageal reflux disease without esophagitis; I10 Essential (primary) hypertension; F17.210 Nicotine dependence, cigarettes, uncomplicated
CPT/HCPCS: 36415; 74177; 80048; 80053; 81001; 81025; 83605; 83690; 85025; 85027; 85610; 85730; 86140; 87040; 87086; 93005; 96361; 96365; 96366; 96367; 96372; 96375; 96376; 99285; A9270; G0378; J0696; J1650; J1836; J2270; J2405; J7030; Q9967

== ENCOUNTER 2025-08-11 10:42 | Emergency (ER) | payer OTHER, SELFPAY ==
--- NOTE | 2025-08-11 10:45 | ED.URI ---
HPI - URI/Sore Throat General Chief Complaint: Upper Respiratory Infection Stated Complaint: URI Time Seen by Provider: 08/11/25 10:58 Source: patient, RN notes reviewed and old records reviewed Mode of arrival: ambulatory Limitations: no limitations History of Present Illness HPI Narrative: 39-year-old female presents to the [facility] with complaints of a dry cough and shortness of breath. Patient states that on Thursday she was in a crawl space. Symptoms started on Thursday, 3 days. Denies any productive cough. Denies any chest pain. Onset (ago): day(s) (3) Related Data Home Medications ?Medication ?Instructions ?Recorded ?Confirmed ?Last Taken ?Type cyanocobalamin (vitamin B-12) 1,000 mcg PO DAILY 03/13/21 06/27/25 06/19/25 History 1,000 mcg tablet ibuprofen 400 mg PO .COMPLEX PRN pain 11/12/21 06/27/25 Unknown History loratadine 10 mg tablet (Claritin) 10 mg PO DAILY PRN allergy symptoms 03/14/24 06/27/25 Unknown History Allergies Allergy/AdvReac Type Severity Reaction Status Date / Time buspirone (From BuSpar) Allergy Mild Hives Verified 08/11/25 10:48 Review of Systems Review of Systems: All systems reviewed & are unremarkable except as noted in HPI and below Constitutional: Constitutional: Reports no additional constitutional complaints ENT: Reports system reviewed and no additional complaints, except as documented Cardiovascular: Cardiovascular: Reports no additional cardiovascular complaints, Denies chest pain and Denies dyspnea Respiratory: Respiratory: Reports as per HPI, Denies chest congestion, Reports cough and Reports dyspnea Musculoskeletal: Musculoskeletal: Reports no additional musculoskeletal complaints Integumentary/Breasts: Skin/Breast: Reports system reviewed and no additional complaints, except as docu PMFSH Past Medical History Medical History Yeast vaginitis (~06/27/25) Elevated WBC count Urinary tract infection Anemia Hemoglobin 11.6 on 06/23/2025, decreased from 16.5. dilution from IV fluids likely. Gastritis Encounter for wellness examination in adult Screening mammogram, encounter for normal mammogram 02/25/2024. Spider bite (01/31/23) right flank BMI 34.0-34.9,adult COVID-19 (~04/08/22) unvaccinated Pharyngitis (~01/2022) COVID neg 02/28/22 Obesity (BMI 30.0-34.9) Urticaria BMI 33.0-33.9,adult Muscle spasm Right knee pain Right anterior knee pain Esophageal fistula repaired at 3 months Encounter for insertion of mirena IUD 09/15/2007 History of pyloric stenosis Abdominal pain Back pain Chronic eustachian tube dysfunction BMI 32.0-32.9,adult Acute non-recurrent maxillary sinusitis COVID test 06/05/21 Mixed hyperlipidemia (03/12/21) total cholesterol 205, HDL 49, triglycerides 156, LDL 129 on 03/12/2021 . Cholesterol 200, triglycerides 157, HDL 47, LDL 126 on 01/29/2022. Total cholesterol 211, triglycerides 112, HDL 48, LDL 140 with ratio of 4.4 on 01/31/2023. total cholesterol 211, HDL 48, triglycerides 112, LDL 140 with ratio 4.4 on 01/31/2023. Cholesterol 221, triglycerides 205, HDL 41, LDL 146 with ratio 5.4 on 03/04/2024. cholesterol 241, triglycerides 177, HDL 52, LDL 158 with ratio 4.6 on 10/07/2024. cholesterol 233, triglycerides 124, HDL 49, LDL 159 with ratio of 4.8 on 05/18/2025. Positive BUCKY (antinuclear antibody) positive BUCKY 1:80 speckled pattern with SS be positive at 4.4 with possible Sjogren syndrome or SLE without symptoms, CRP 0.21, sedimentation 7, rheumatoid factor less than 15, CCP 7 Vitamin B12 deficiency anemia level low at 279 on 03/12/2021 . Level normal at 506 on 01/29/2022. Level low at 293 with goal greater than 400 on 01/31/2023 with folic acid 8.3 and hemoglobin 13.3. Level low at 293 with goal greater than 400 with folic acid 8.3 and hemoglobin 13.3 on 01/31/2023. level low at 240 with hemoglobin 13.6 on 03/04/2024. Level low at 311 on 10/07/2024. Level low at 238 with goal greater than 400 with hemoglobin 13.3 on 05/18/2025. Tobacco use disorder, continuous patient quit smoking on 06/21/2025. 1/2 pack per day BMI 31.0-31.9,adult Chronic depression Chronic anxiety Seasonal allergic rhinitis Gastro-esophageal reflux disease without esophagitis Essential (primary) hypertension Hypertension GERD (gastroesophageal reflux disease) Arthritis Anxiety Surgical History Surgical History H/O tubal ligation 2008 History of colposcopy with cervical biopsy 01/05/09 [facility] CIN2/ ECC benign H/O LEEP 01/18/09 [facility] GISELE 1 H/O dilation and curettage 11/12/11 Menorrhagia- moderate dysplasia [facility] GISELE 2-3/ adenomyosis History of robot-assisted laparoscopic hysterectomy 01/13/12 [facility]--dysmenorrhea, dysplasia, HGSIL GISELE 2-3, adenomyosis Hx of cholecystectomy Family History Family History Father Alcohol abuse Hypertension Mother Hypertension Anxiety Sibling Diabetes mellitus Anxiety Depression Grandparent Diabetes mellitus Hypertension Anxiety Depression Cerebrovascular accident Grandparent Diabetes mellitus Hypertension Social History Social History Smoking packs per day: 0.5 Smoking cigarettes per day: 10.0 Years smoked: 23 Smoking pack-years: 11.50 Smoking status: Current every day smoker Tobacco type: cigarettes Second hand tobacco smoke exposure: Yes Alcohol intake: current Drinks per week: 1 Alcohol use details: occ 1 every 3 months Substance use: never Substance use type: does not use Do You Feel Safe in your Home?: Yes Lack of Transportation: No Lack of Food: Never True Current Housing: I Have Housing Concerned About Future Housing: No Difficulty Paying Gas/Electric Bills: No Difficulty Paying for Meds: No Currently Unemployed: No Education: High School Diploma/GED Difficulty w/ Childcare or Family Care: No Living arrangements: with family Additional living arrangements comments: spouse Occupation/Education: occupation 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 There is no relevant family history pertinent to the patient complaint. Exam Const: General: cooperative, healthy appearing, comfortable, no acute distress, well developed, alert and well nourished Nutritional Appearance: well nourished Orientation/consciousness: patient oriented x3 Limitations: no limitations HENMT: Head: normal to inspection Ears: hearing grossly normal bilaterally, external ears normal, TM's normal bilaterally, EAC's normal, mastoids normal and no periauricular adenopathy Mouth: Yes Normal oral and palatal mucosa present, Yes lip normal, Yes tongue normal and Yes moist mucous membranes Throat: posterior oropharynx normal, uvula midline, postnasal drainage and no uvular edema Eyes: General: appearance normal, both eyes and all related structures Alignment and Position: alignment normal Neck: Neck: normal visual inspection, full ROM, no lymphadenopathy and no meningeal signs Chest: Chest palpation & inspection: normal inspection of the chest Resp: Effort & Inspection: normal respiratory effort and able to speak in complete sentences Auscultation: clear to auscultation bilaterally, no crackles, no rales, no rhonchi and no wheezes Cardio: Rate: regular rate Skin: General skin exam: normal color and no rashes or lesions noted Neuro: General: patient oriented x3, gait normal, moves all extremities and no meningeal signs Cognition (Neuro): normal cognition Speech: normal speech Gait exam (Neuro): Normal gait present Extrem: General: normal to inspection, full ROM, capillary refill normal and normal gait Psych: Appearance: grossly normal and well kempt Mental Status: mental status grossly normal Speech and movement: Normal speech and movement present and Clear speech present Affect: normal affect Attitude: cooperative Course Course Level of Care: Express Care Visit Vital Signs Vital signs: Vital Signs Temperature 97.6 F 08/11/25 10:52 Pulse Rate 68 08/11/25 10:52 Respiratory Rate 18 08/11/25 10:52 Blood Pressure 116/71 08/11/25 10:52 Pulse Oximetry 100 08/11/25 10:52 Oxygen Delivery Room Air 08/11/25 10:52 Temperature 97.6 F 08/11/25 10:52 Pulse Rate 68 08/11/25 10:52 Respiratory Rate 18 08/11/25 10:52 Blood Pressure 116/71 08/11/25 10:52 Pulse Oximetry 100 08/11/25 10:52 Oxygen Delivery Room Air 08/11/25 10:52 Reviewed MDM - URI/Sore Throat MDM Narrative Medical decision making narrative: Patient sitting comfortably in exam room. Patient is vitals stable. Patient presents with dry cough for 3 days. Exam most consistent with inflammation, will prescribe prednisone, encourage patient to use albuterol which she states she has enough, does not need a refill. No acute findings noted on exam Patient appropriate for outpatient treatment with close follow-up Discharge instructions reviewed with patient, as well as provided in writing per nursing staff. The instructions also include specific and strict return/GO TO THE ER as well as f/u information. All questions have been answered, and the patient deny any further questions with discharge and discharge plan. Some parts of this dictation were generated by voice recognition software and may contain typographical and/or grammatical inaccuracies. Differential Diagnosis Differential diagnosis: Likely upper respiratory infection, otitis media, sinusitis, viral infection, bronchitis, influenza and pharyngitis Critical Care Time Critical Care Time Critical Care Time: No Discharge Plan Discharge Clinical Impression: Bronchitis Patient Disposition: Home Condition: Stable Instructions: Antibiotic Form, Acute Bronchitis (ED) Additional Instructions: It is very important to treat your symptoms. Drink plenty of water, Gatorade, Pedialyte, ice pops or Jell-O. -Alternate Tylenol and Motrin per package directions for fever or pain. You can alternate every 4 hours -Antihistamine medication such as Zyrtec/Claritin during the day can help improve symptoms. -doing daily nasal irrigations can help relieve pressure your sinuses. Things like a Neti pot -Use Flonase twice a day for 5 days then daily to help reduce the inflammation and dry up your sinuses. -You can also use Mucinex. Be sure to drink plenty of water with this medication at least 8 ounces with every dose and it is important to drink 8 to 10 glasses of water per day. Water is a natural decongestant -Eat and drink things that are easy to swallow, like tea or soup, or popsicles. -Oral rinses such as: Salt water gargles and/or may use topical anesthetic (eg. Chloraseptic spray) or lozenges to relieve dryness or throat pain). -Frequent hand washing or hand residential air sealing technician is one of the best ways to prevent spread of infection. -Using a vaporizer or humidifier at night will also help thin secretions and help with coughing up phlegm. -Follow up with primary care provider in 7-10 days if condition is not improving - For new or worsening symptoms go directly to the nearest ER Patient Language: Iraqi Prescriptions: New (DME) Aerochamber MV Spacer See Rx Instructions .Route Qty: 1 0RF Rx Instructions: As directed prednisone 20 mg tablet 40 mg PO DAILY 5 Days Qty: 10 0RF No Action fluticasone propionate [Flonase Allergy Relief] 50 mcg/actuation spray,suspension 1 spray intranasal BID Qty: 16 11RF Patient Comments: prn for allergies Rx Instructions: administer into each nostril loratadine [Claritin] 10 mg tablet 10 mg PO DAILY PRN (Reason: allergy symptoms) Patient Comments: prn for allergies ibuprofen 400 mg PO .COMPLEX PRN (Reason: pain) Patient Comments: prn for pain Rx Instructions: 400 mg orally q 6 PRN; orally PRN; cyanocobalamin (vitamin B-12) 1,000 mcg tablet 1,000 mcg PO DAILY lisinopril 40 mg tablet 40 mg PO DAILY Qty: 30 11RF pantoprazole [Protonix] 40 mg tablet,delayed release (DR/EC) 40 mg PO QAM Qty: 30 5RF Follow-up/Referrals: Darrell Clarke MD [Primary Care Provider, Family Practice] - 1 Week Stand Alone Forms: Work/School Release IP Time of Disposition: 11:16
[2025-08-11 10:52] VITALS: BP 116/71; PULSE 68; RESP 18; TEMP 36.4; O2SAT 100
== END 2025-08-11 11:18 | disposition home or self-care (01) ==
PROVIDERS: Emergency Provider Nurse Practitioner; PCP Family Medicine
DX: J40 Bronchitis, not specified as acute or chronic (principal); F17.210 Nicotine dependence, cigarettes, uncomplicated; I10 Essential (primary) hypertension; K21.9 Gastro-esophageal reflux disease without esophagitis; E78.2 Mixed hyperlipidemia; M19.90 Unspecified osteoarthritis, unspecified site; E66.9 Obesity, unspecified; Z68.35 Body mass index [BMI] 35.0-35.9, adult; Z86.16 Personal history of COVID-19
CPT/HCPCS: 99213; G0463

== ENCOUNTER 2025-08-16 15:52 | Outpatient (CLI) | payer OTHER, SELFPAY ==
--- NOTE | ~2025-08-16 | MM_ITS ---
EXAMINATION: MM screening paris BI w haja HISTORY: Screening TECHNIQUE: Craniocaudal and mediolateral oblique 3-D tomosynthesis images were obtained and synthetic 2-D images were generated. CAD analysis was submitted and interpreted. COMPARISON: 02/25/2024 BREAST PARENCHYMAL COMPOSITION: Not Dense: There are scattered areas of fibroglandular density. FINDINGS: There is no evidence of suspicious mass, calcification, or architectural distortion to suggest malignancy in either breast. IMPRESSION: 1. No mammographic evidence of malignancy. 2. Recommend routine screening mammography in one year. BI-RADS Category 1: Negative Reviewed, dictated and finalized at location B. DISABILITIES TEACHER
== END 2025-08-16 15:53 | disposition home or self-care (01) ==
LOC: MICIMG 15:53
PROVIDERS: PCP Family Medicine; Visit Provider Obstetrics & Gynecology
DX: Z12.31 Encounter for screening mammogram for malignant neoplasm of breast (principal)
CPT/HCPCS: 77063; 77067

== ENCOUNTER 2025-08-21 13:55 | Outpatient (CLI) | payer OTHER, SELFPAY ==
[2025-08-21 14:18] LABS: Add Urine Microscopic? YES; Appearance Urine Cloudy (Clear); Glucose Urine UA Negative (Negative); Leukocyte Esterase Ur Negative LEU/UL (Negative); Nitrate Urine Negative (Negative); Non Pathogenic Casts 0-2; Specific Grav Ur 1.022 (1.001-1.035)
== END 2025-08-21 13:56 | disposition home or self-care (01) ==
LOC: ANHLAB 13:57
PROVIDERS: PCP Family Medicine; Visit Provider Family Medicine
DX: N39.0 Urinary tract infection, site not specified (principal)
CPT/HCPCS: 81001; 87086